=== PATIENT | female | born 1940 | race Caucasian/White ===

== ENCOUNTER 2023-11-11 06:55 | Day surgery (SDC) | payer MEDICARE, BC ==
[2023-11-11] VITALS (11 sets, daily range): BP systolic 101–133; BP diastolic 61–96; PULSE 50–100; RESP 12–18; TEMP 98.2; O2SAT 92–99
[~2023-11-11] VITALS: Ht 157.5 cm; Wt 70.0 kg
[~2023-11-11 06:55] MED LIST: BENA20TA76 PO; FLEC100T2 PO; METO-395 PO; THY60T PO
[2023-11-11] MEDS ORDERED: EMPA10TA PO (07:40)
[2023-11-11] MEDS ORDERED: AMIO200T27 PO (07:40)
[2023-11-11] MEDS ORDERED: RIVA15TA PO (07:40)
[2023-11-11] MEDS ORDERED: THYR90TA PO (07:40)
[2023-11-11] MEDS ORDERED: FURO40TA4 PO (07:40)
[2023-11-11] MEDS ORDERED: BENA10TA75 PO (07:40)
[2023-11-11 08:35] LABS: BASOPHILS # (AUTO) 0.1 X10'3 (0-0.2); BASOPHILS % (AUTO) 0.9 % (0-1); EOSINOPHILS # (AUTO) 0.1 X10'3 (0-0.9); EOSINOPHILS % (AUTO) 0.9 % (0-6); HEMOGLOBIN 13.1 g/dl (12.0-16.0); LYMPHOCYTES % (AUTO) 16.6 % (21-51); MEAN CORPUSCULAR HEMOGLOBIN 29.8 PG (27.0-31.0); MEAN CORPUSCULAR HGB CONC 32.8 g/dL (33.0-36.5); MEAN CORPUSCULAR VOLUME 90.9 FL (78-98); MEAN PLATELET VOLUME 8.1 FL (7.4-10.4); MONOCYTES # (AUTO) 0.4 X10'3 (0-0.9); MONOCYTES % (AUTO) 7.6 % (2-12); NEUTROPHILS # (AUTO) 4.4 X10'3 (1.8-7.7); PLATELET COUNT 243 X10'3 (140-440); RED CELL DISTRIBUTION WIDTH 13.8 % (11.5-14.5); WHITE BLOOD COUNT 5.9 X10'3 (4.5-11.0)
[2023-11-11 09:10] LABS: ALBUMIN 3.5 G/DL (3.4-5.0); ANION GAP 10 (8-16); BLOOD UREA NITROGEN 31 MG/DL (7-18); BUN/CREATININE RATIO 22.6 (10.0-20.0); CALCIUM 9.9 MG/DL (8.5-10.1); CHLORIDE 109 MMOL/L (99-107); CREATININE 1.37 MG/DL (0.40-0.90); GLUCOSE 137 MG/DL (70-104); MAGNESIUM 2.4 MG/DL (1.5-2.4); POTASSIUM 4.5 MMOL/L (3.5-5.1); SODIUM 143 MMOL/L (135-145); TOTAL CARBON DIOXIDE 24.1 MMOL/L (24-32); eCRCL 25 ML/MIN; eGFR 37 ML/MIN
[2023-11-11] MEDS: MIDAZolam 1mg/ml 10ml vial IV ONE (09:38)
[2023-11-11] MEDS: fentaNYL/PF 50MCG/1 ML 2ML syringe IV ONE (09:38)
[2023-11-11] MEDS: normal saline 1000ml 1,000 ML IV SCH (09:38)
== END 2023-11-11 10:42 | disposition home or self-care (01) ==
LOC: SSTAY O 06:55
PROVIDERS: ATTEND Internal Medicine Cardiovascular Disease
DX: I48.0 Paroxysmal atrial fibrillation (principal); I10 Essential (primary) hypertension; I35.0 Nonrheumatic aortic (valve) stenosis; E11.9 Type 2 diabetes mellitus without complications; E78.2 Mixed hyperlipidemia; E03.9 Hypothyroidism, unspecified; I47.10 Supraventricular tachycardia, unspecified; Z85.3 Personal history of malignant neoplasm of breast; Z98.890 Other specified postprocedural states; Z87.891 Personal history of nicotine dependence; Z88.0 Allergy status to penicillin; Z88.8 Allergy status to other drugs, medicaments and biological substances; Z79.899 Other long term (current) drug therapy
CPT/HCPCS: 36415; 80048; 82948; 83735; 85025; 92960; 93005; J2250; J3010; J7030; A4620

== ENCOUNTER 2024-11-09 06:41 | Day surgery (SDC) | payer MEDICARE, BC ==
[~2024-11-09] VITALS: Ht 157.5 cm; Wt 73.6 kg
[2024-11-09] VITALS (11 sets, daily range): BP systolic 91–119; BP diastolic 51–97; PULSE 41–100; RESP 16; TEMP 97.7; O2SAT 95–99
[~2024-11-09 06:41] MED LIST changes: +AMIO200T27 PO; +BENA10TA75 PO; -BENA20TA76 PO; +EMPA10TA PO; -FLEC100T2 PO; +FURO40TA4 PO; +RIVA15TA PO; -THY60T PO; +THYR90TA PO
[2024-11-09] MEDS: normal saline 1000ml 1,000 ML IV SCH (07:00)
[2024-11-09 07:21] LABS: BASOPHILS # (AUTO) 0.1 X10'3 (0-0.2); BASOPHILS % (AUTO) 0.9 % (0-1); EOSINOPHILS # (AUTO) 0.1 X10'3 (0-0.9); EOSINOPHILS % (AUTO) 1.6 % (0-6); HEMATOCRIT 37.7 % (35.0-45.0); HEMOGLOBIN 12.2 g/dl (12.0-16.0); LYMPHOCYTES # (AUTO) 1.4 X10'3 (1.1-4.8); LYMPHOCYTES % (AUTO) 21.2 % (21-51); MEAN CORPUSCULAR HEMOGLOBIN 27.4 PG (27.0-31.0); MEAN CORPUSCULAR HGB CONC 32.5 g/dL (33.0-36.5); MEAN CORPUSCULAR VOLUME 84.5 FL (78-98); MEAN PLATELET VOLUME 8.1 FL (7.4-10.4); MONOCYTES # (AUTO) 0.6 X10'3 (0-0.9); MONOCYTES % (AUTO) 8.8 % (2-12); NEUTROPHILS # (AUTO) 4.5 X10'3 (1.8-7.7); NEUTROPHILS % (AUTO) 67.5 % (42-75); PLATELET COUNT 280 X10'3 (140-440); RED BLOOD COUNT 4.46 X10'6 (4.20-5.60); RED CELL DISTRIBUTION WIDTH 14.4 % (11.5-14.5); WHITE BLOOD COUNT 6.7 X10'3 (4.5-11.0)
[2024-11-09 07:29] LABS: ALBUMIN 3.2 G/DL (3.4-5.0); ANION GAP 8 (8-16); BLOOD UREA NITROGEN 19 MG/DL (7-18); BUN/CREATININE RATIO 14.8 (10.0-20.0); CALCIUM 9.1 MG/DL (8.5-10.1); CHLORIDE 106 MMOL/L (99-107); CREATININE 1.28 MG/DL (0.40-0.90); GLUCOSE 140 MG/DL (70-104); MAGNESIUM 2.1 MG/DL (1.5-2.4); POTASSIUM 4.2 MMOL/L (3.5-5.1); SODIUM 139 MMOL/L (135-145); TOTAL CARBON DIOXIDE 25.5 MMOL/L (24-32); eCRCL 26 ML/MIN; eGFR 40 ML/MIN
[2024-11-09] MEDS ORDERED: APIX5TAB3 PO (07:40)
[2024-11-09] MEDS ORDERED: FLEC100T35 PO (07:40)
[2024-11-09] MEDS ORDERED: THY60T PO (07:40)
[2024-11-09] MEDS ORDERED: TURM500C4 PO (07:40)
[2024-11-09] MEDS ORDERED: PANT40TA54 PO (07:40)
[2024-11-09] MEDS ORDERED: IODI1GRA (07:40)
[2024-11-09] MEDS ORDERED: MAGN500T9 PO (07:40)
[2024-11-09] MEDS ORDERED: THIA50TA14 (07:40)
[2024-11-09 07:57] LABS: INR 1.1 INR; PROTHROMBIN TIME 11.5 SECONDS (9.0-12.0)
[2024-11-09] MEDS ORDERED: atropine 1 MG/1 ML vial IV ONE (09:10)
[2024-11-09] MEDS: MIDAZolam 1mg/ml 10ml vial IV ONE (09:21)
[2024-11-09] MEDS: atropine 0.1mg/ml 10ml syringe ONE (09:21)
[2024-11-09] MEDS: fentaNYL/PF 50MCG/1 ML 2ML syringe IV ONE (09:23)
[2024-11-09] MEDS: atropine 0.1mg/ml 10ml syringe IV ONE (10:06)
== END 2024-11-09 11:25 | disposition home or self-care (01) ==
LOC: SSTAY O 06:41
PROVIDERS: ATTEND Internal Medicine Cardiovascular Disease
DX: I48.0 Paroxysmal atrial fibrillation (principal); I49.1 Atrial premature depolarization; I44.7 Left bundle-branch block, unspecified; E03.9 Hypothyroidism, unspecified; E11.9 Type 2 diabetes mellitus without complications; Z98.890 Other specified postprocedural states; Z85.3 Personal history of malignant neoplasm of breast; Z90.49 Acquired absence of other specified parts of digestive tract; Z87.891 Personal history of nicotine dependence; Z79.01 Long term (current) use of anticoagulants; Z79.899 Other long term (current) drug therapy
CPT/HCPCS: 36415; 80048; 82948; 83735; 85025; 85610; 92960; 93005; J0461; J2250; J3010; J7030

== ENCOUNTER 2025-03-18 09:08 | Day surgery (SDC) | payer MEDICARE, BC ==
[2025-03-18] VITALS (8 sets, daily range): BP systolic 99–157; BP diastolic 55–106; PULSE 52–91; RESP 12–22; TEMP 98.6; O2SAT 96–99
[~2025-03-18] VITALS: Ht 157.5 cm; Wt 73.6 kg
[~2025-03-18 09:08] MED LIST changes: -AMIO200T27 PO; +APIX5TAB3 PO; -BENA10TA75 PO; -EMPA10TA PO; +FLEC100T35 PO; -FURO40TA4 PO; +IODI1GRA; +MAGN500T9 PO; +PANT40TA54 PO; -RIVA15TA PO; +THIA50TA14; +THY60T PO; -THYR90TA PO; +TURM500C4 PO; +fentaNYL/PF 50MCG/1 ML 2ML syringe ONE; +midazolam 1 mg/ML 2ml injection ONE
--- NOTE | 2025-03-18 09:50 | ELECTROCARDIOGRAPH REPORT ---
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 Wally Callahan Measurements Intervals [place] Rate: 96 P: 0 VT: 0 QRS: -78 QRSD: 176 T: 104 QT: 412 QTc: 521 Interpretive Statements Atrial fibrillation Left bundle branch block Electronically Signed On 03-19-2025 6:53:[address] Wally Callahan Please click the below link to view image of tracing.
[2025-03-18] MEDS ORDERED: MIDAZolam 1mg/ml 10ml vial IV ONE (10:15)
[2025-03-18] MEDS ORDERED: fentaNYL/PF 50MCG/1 ML 2ML syringe IV ONE (10:15)
[2025-03-18 10:22] LABS: BASOPHILS # (AUTO) 0.1 X10'3 (0-0.2); BASOPHILS % (AUTO) 0.8 % (0-1); EOSINOPHILS % (AUTO) 0.6 % (0-6); HEMATOCRIT 43.2 % (35.0-45.0); LYMPHOCYTES # (AUTO) 1.2 X10'3 (1.1-4.8); LYMPHOCYTES % (AUTO) 16.9 % (21-51); MEAN CORPUSCULAR HEMOGLOBIN 26.7 PG (27.0-31.0); MEAN CORPUSCULAR HGB CONC 32.4 g/dL (33.0-36.5); MEAN CORPUSCULAR VOLUME 82.5 FL (78-98); MEAN PLATELET VOLUME 7.9 FL (7.4-10.4); MONOCYTES # (AUTO) 0.5 X10'3 (0-0.9); MONOCYTES % (AUTO) 6.9 % (2-12); NEUTROPHILS # (AUTO) 5.2 X10'3 (1.8-7.7); NEUTROPHILS % (AUTO) 74.8 % (42-75); PLATELET COUNT 267 X10'3 (140-440); RED BLOOD COUNT 5.24 X10'6 (4.20-5.60); RED CELL DISTRIBUTION WIDTH 15.8 % (11.5-14.5)
[2025-03-18] MEDS ORDERED: ANAS1TAB10 PO (10:24)
[2025-03-18] MEDS ORDERED: LAN0.125T PO (10:24)
[2025-03-18 10:32] LABS: INR 1.1 INR; PROTHROMBIN TIME 11.4 SECONDS (9.0-12.0)
[2025-03-18 10:46] LABS: BLOOD UREA NITROGEN 28 MG/DL (7-18); BUN/CREATININE RATIO 23.1 (10.0-20.0); CALCIUM 10.2 MG/DL (8.5-10.1); CHLORIDE 101 MMOL/L (99-107); CREATININE 1.21 MG/DL (0.40-0.90); GLUCOSE 135 MG/DL (70-104); MAGNESIUM 2.2 MG/DL (1.5-2.4); POTASSIUM 4.4 MMOL/L (3.5-5.1); TOTAL CARBON DIOXIDE 27.4 MMOL/L (24-32); eCRCL 27 ML/MIN; eGFR 42 ML/MIN
[2025-03-18 11:12] LABS: ANION GAP 11 (8-16); SODIUM 139 MMOL/L (135-145)
--- NOTE | 2025-03-18 11:19 | CARDIOLOGY REPORT ---
DATE OF SERVICE: 03/18/2025 DICTATING PHYSICIAN: RADHA MYERS DO PROCEDURAL NOTE PROCEDURE: DC cardioversion. PREPROCEDURAL DIAGNOSIS: Atrial fibrillation. POSTPROCEDURAL DIAGNOSIS: Atrial fibrillation, converted to sinus rhythm. DESCRIPTION OF PROCEDURE: The patient was sedated with fentanyl and Versed and then given one 200 joule synchronized shock resulting in conversion to sinus rhythm. There were no complications. PLAN: Ongoing medical therapy. FINAL DIAGNOSIS: Atrial fibrillation, cardioverted to sinus rhythm. RADHA MYERS DO TID: [id number] RECEIPT: [id number] SANTOSH/MICHAEL
[2025-03-18] MEDS: magnesium sulf-water 2g/50mL 50 ML IV ONE (11:21)
[2025-03-18] MEDS: normal saline 1000ml 1,000 ML IV SCH (11:22)
== END 2025-03-18 12:30 | disposition home or self-care (01) ==
LOC: SSTAY O 09:08
PROVIDERS: ATTEND Internal Medicine Cardiovascular Disease
DX: I48.0 Paroxysmal atrial fibrillation (principal); I08.0 Rheumatic disorders of both mitral and aortic valves; I44.7 Left bundle-branch block, unspecified; I10 Essential (primary) hypertension; E11.9 Type 2 diabetes mellitus without complications; E78.2 Mixed hyperlipidemia; Z79.899 Other long term (current) drug therapy
CPT/HCPCS: 36415; 80048; 83735; 85025; 85610; 92960; 93005; J2250; J3010; J7030; 99152

== ENCOUNTER 2025-08-02 07:33 | Day surgery (SDC) | payer MEDICARE, BC ==
[2025-08-02] VITALS (14 sets, daily range): BP systolic 102–122; BP diastolic 57–74; PULSE 41–61; RESP 10–15; O2SAT 95–98
[~2025-08-02] VITALS: Ht 157.5 cm; Wt 68.7 kg
[~2025-08-02 07:33] MED LIST changes: +ANAS1TAB10 PO; +LAN0.125T PO; -METO-395 PO; -fentaNYL/PF 50MCG/1 ML 2ML syringe ONE; -midazolam 1 mg/ML 2ml injection ONE
[2025-08-02] MEDS ORDERED: METO50TA16 PO (08:06)
[2025-08-02] MEDS ORDERED: AMIO200T76 PO (08:06)
--- NOTE | 2025-08-02 08:22 | ELECTROCARDIOGRAPH REPORT ---
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 MARLYS Arevalo Measurements Intervals [place] Rate: 88 P: 0 [place]: 0 QRS: -56 QRSD: 134 T: 109 QT: 412 QTc: 499 Interpretive Statements Atrial fibrillation Left bundle branch block Electronically Signed On 08-02-2025 16:51:[address] MARLYS Arevalo Please click the below link to view image of tracing.
[2025-08-02] MEDS ORDERED: normal saline 1000ml 1,000 ML IV SCH (08:50)
[2025-08-02] MEDS ORDERED: MIDAZolam 1mg/ml 10ml vial IV ONE (08:50)
[2025-08-02] MEDS ORDERED: fentaNYL/PF 50MCG/1 ML 2ML syringe IV ONE (08:50)
[2025-08-02] MEDS ORDERED: amiodarone 50MG/ML inj IV ONE (09:01)
[2025-08-02] MEDS ORDERED: atropine 0.1mg/ml 10ml syringe ONE ×2 (09:02→10:03)
[2025-08-02] MEDS ORDERED: midazolam 1 mg/ML 2ml injection ONE ×2 (09:02→09:25)
[2025-08-02] MEDS ORDERED: fentaNYL/PF 50MCG/1 ML 2ML syringe ONE (09:02)
[2025-08-02 09:11] LABS: MEAN PLATELET VOLUME 8.2 FL (7.4-10.4); RED CELL DISTRIBUTION WIDTH 15.9 % (11.5-14.5)
[2025-08-02 09:16] LABS: CREATININE 1.18 MG/DL (0.40-0.90); TOTAL CARBON DIOXIDE 28.4 MMOL/L (24-32); eCRCL 28 ML/MIN; eGFR 44 ML/MIN
[2025-08-02 09:17] LABS: INR 1.1 INR
[2025-08-02] MEDS: atropine 0.1mg/ml 10ml syringe IV ONE (10:20)
[2025-08-02] MEDS: ondansetron/PF 4mg/2ml inj ONE (12:41)
--- NOTE | 2025-08-02 12:56 | CARDIOLOGY REPORT ---
DATE OF SERVICE: 08/02/2025 DICTATING PHYSICIAN: RADHA MYERS DO PROCEDURE: DC cardioversion. PREPROCEDURAL DIAGNOSIS: Atrial fibrillation. POSTPROCEDURAL DIAGNOSIS: Atrial fibrillation, cardioverted to sinus rhythm. DESCRIPTION OF PROCEDURE: The patient was sedated with fentanyl and Versed. She was then given 1 200 joule synchronized shock resulting in reversion of sinus rhythm. COMPLICATIONS: There were no complications. PLAN: Ongoing medical therapy. FINAL DIAGNOSIS: Atrial fibrillation, cardioverted to sinus rhythm. RADHA MYERS DO TID: [id number] RECEIPT: [id number] RP/UDD MTDD
[2025-08-02] MEDS: ketorolac trometh 15mg/ml vial 15 MG/ML ML IV ONE (13:11)
--- NOTE | 2025-08-02 15:01 | ELECTROCARDIOGRAPH REPORT ---
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 MARLYS Arevalo Measurements Intervals [place] Rate: 39 P: 62 [place]: 231 QRS: -52 QRSD: 133 T: 203 QT: 512 QTc: 413 Interpretive Statements Sinus bradycardia Atrial premature complex Prolonged [place] interval Left bundle branch block Electronically Signed On 08-02-2025 16:52:[address] MARLYS Arevalo Please click the below link to view image of tracing.
== END 2025-08-02 16:40 | disposition home or self-care (01) ==
LOC: SSTAY O 07:33
PROVIDERS: ATTEND Internal Medicine Cardiovascular Disease
DX: I48.91 Unspecified atrial fibrillation (principal); I44.7 Left bundle-branch block, unspecified; R94.31 Abnormal electrocardiogram [ECG] [EKG]; I49.1 Atrial premature depolarization; E11.9 Type 2 diabetes mellitus without complications; E03.9 Hypothyroidism, unspecified; Z87.891 Personal history of nicotine dependence; Z79.01 Long term (current) use of anticoagulants; Z79.899 Other long term (current) drug therapy; Z90.49 Acquired absence of other specified parts of digestive tract; Z98.890 Other specified postprocedural states
CPT/HCPCS: 36415; 80048; 83735; 85025; 85610; 92960; 93005; A6258; J0461; J1885; J2250; J2405; J3010; J7030; 99152; 99153; J0282